=== PATIENT | female | born 1980 | race African-American/Black ===

== ENCOUNTER 2018-12-06 13:26 | Emergency (ER) | payer SELFPAY ==
--- NOTE | 2018-12-06 15:37 | ER Document Report ---
ED Medical Screen (RME) - General Chief Complaint: Abdominal Pain Stated Complaint: VOMITING Time Seen by Provider: 12/06/18 15:35 Mode of Arrival: Ambulatory Information source: Patient Notes: 38-year-old female presents to ED for complaint of nausea vomiting cramping for over a week dizziness and abdominal pain. She states she has not had any stool in a while she does not know how long. She states she has a history of bipolar and schizophrenia. She states she does not smoke but she drinks maybe once a week or once a month and smokes pot. She states she lives with her man. Patient is alert oriented respirations regular and unlabored does gag in the emergency room but no real vomiting noted. Abdomen is soft to palpation. Bowel sounds are present. I have greeted and performed a rapid initial assessment of this patient. A comprehensive ED assessment and evaluation of the patient, analysis of test results and completion of medical decision making process will be conducted by an additional ED providers. TRAVEL OUTSIDE OF THE [place] IN LAST 30 DAYS: No - Related Data Allergies/Adverse Reactions: No Known Allergies Allergy (Verified 12/06/18 13:28) Past Medical History - Social History Frequency of alcohol use: Social Drug Abuse: Marijuana Renal/ Medical History: Denies: Hx Peritoneal Dialysis Psychiatric Medical History: Reports: Hx Bipolar Disorder, Hx Schizophrenia Physical Exam - Vital signs Vitals: Temp Pulse Resp BP Pulse Ox 98.5 F 94 18 120/69 99 12/06/18 13:34 12/06/18 13:34 12/06/18 13:34 12/06/18 13:34 12/06/18 13:34 Course - Vital Signs Vital signs: Temp Pulse Resp BP Pulse Ox 98.5 F 94 18 120/69 99 12/06/18 13:34 12/06/18 13:34 12/06/18 13:34 12/06/18 13:34 12/06/18 13:34
[2018-12-06 17:13] LABS: ABSOLUTE LYMPHOCYTES (AUTO) 1.7 10^3/uL (0.5-4.7); ABSOLUTE MONOCYTES (AUTO) 0.5 10^3/uL (0.1-1.4); BASOPHILS % (AUTO) 0.7 % (0-2); EOSINOPHILS % (AUTO) 0.1 % (0-6); HEMATOCRIT 41.5 % (36.0-47.0); HEMOGLOBIN 13.9 g/dL (12.0-15.5); LYMPHOCYTES % (AUTO) 27.1 % (13-45); MEAN CORPUSCULAR HGB CONC 33.4 g/dL (32.0-36.0); MEAN CORPUSCULAR VOLUME 72 fl (80-97); MONOCYTES % (AUTO) 8.3 % (3-13); PLATELET COUNT 310 10^3/uL (150-450); RED BLOOD COUNT 5.78 10^6/uL (3.72-5.28); RED CELL DISTRIBUTION WIDTH 13.9 % (11.5-14.0); SEGMENTED NEUTROPHILS % (AUTO) 63.8 % (42-78); TOTAL CELLS COUNTED % (AUTO) 100 %; WHITE BLOOD COUNT 6.2 10^3/uL (4.0-10.5)
[2018-12-06 17:23] LABS: APPEARANCE,URINE SLIGHTLY-CLOUDY; BILIRUBIN,URINE NEGATIVE (NEGATIVE); COLOR,URINE AMBER; GLUCOSE, URINE NEGATIVE (NEGATIVE); KETONES,URINE 80 mg/dL (NEGATIVE); LEUKOCYTE ESTERASE,URINE NEGATIVE (NEGATIVE); NITRITE,URINE NEGATIVE (NEGATIVE); PROTEIN,URINE 100 mg/dL (NEGATIVE)
[2018-12-06 17:30] LABS: URINE AMPHETAMINES SCREEN NEGATIVE; URINE BARBITURATES SCREEN NEGATIVE; URINE BENZODIAZEPINES SCREEN NEGATIVE; URINE COCAINE SCREEN NEGATIVE; URINE MARIJUANA (THC) SCREEN UNCONFIRMED POSITIVE; URINE METHADONE SCREEN NEGATIVE; URINE PHENCYCLIDINE SCREEN NEGATIVE
[2018-12-06 18:15] LABS: ALANINE AMINOTRANSFERASE 32 U/L (9-52); ALBUMIN 4.8 g/dL (3.5-5.0); ALKALINE PHOSPHATASE 50 U/L (38-126); ANION GAP 17 (5-19); ASPARTATE AMINO TRANSFERASE 22 U/L (14-36); BILIRUBIN,DIRECT 0.4 mg/dL (0.0-0.4); BILIRUBIN,TOTAL 0.8 mg/dL (0.2-1.3); BLOOD UREA NITROGEN 12 mg/dL (7-20); CALCIUM 10.8 mg/dL (8.4-10.2); CARBON DIOXIDE 24 mmol/L (22-30); CHLORIDE 98 mmol/L (98-107); GLUCOSE 100 mg/dL (75-110); LIPASE 207.8 U/L (23-300); POTASSIUM 3.4 mmol/L (3.6-5.0); SODIUM 138.7 mmol/L (137-145); TOTAL PROTEIN 8.5 g/dL (6.3-8.2)
[2018-12-06] MEDS ORDERED: METOCLOPRAMIDE HCL INJ/PF 10 MG/2 ML SDV IV ONE (21:52)
--- NOTE | 2018-12-06 21:54 | RADIOLOGY REPORT (SQ) ---
US PELVIS HISTORY: Early . Pelvic pain. COMPARISON: None. TECHNIQUE: Grayscale, color Doppler, and spectral Doppler ultrasound images of the pelvis were obtained. FINDINGS: There is an intrauterine gestational sac with a yolk sac and pole visualized. The crown-rump length measures 1.37 cm which corresponds to 7 weeks 5 days of . There is a heterogeneous area left of the gestational sac measuring 2.1 cm this may represent a small subchorionic hemorrhage. There is also a 2.5 x 2.6 x 2.8 cm fibroid. The heart rate is 175 bpm. The left ovary is not visualized. The right ovary measures 2.4 x 2.5 x 2.8 cm and contains normal color Doppler blood flow. IMPRESSION: 1. Single live IUP with estimated gestational age 7 weeks 5 days. 2. Small 2.1 cm subchorionic hemorrhage; attention on follow-up imaging is suggested. 3. 2.8 cm uterine fibroid. 4. Unremarkable right ovary. Left ovary not well visualized.
[2018-12-06] MEDS: NORMAL SALINE 1000 ML 1,000 ML IV PRN ×2 (22:08→23:04)
[2018-12-06] MEDS ORDERED: ACETAMINOPHEN 325 MG TABLET PO ONE (23:26)
[2018-12-07 00:19] VITALS: BP 122/64
--- NOTE | 2018-12-07 03:05 | ER Document Report ---
Entered by MATTHEW PAZ SCRIBE 12/06/182002 Acting as scribe for:WHITNEY MAYEN DO ED GI/ - General Chief Complaint: Abdominal Pain Stated Complaint: VOMITING Time Seen by Provider: 12/06/18 15:35 Primary Care Provider: [facility] [Provider Group] - Follow up in 3-5 days Mode of Arrival: Ambulatory Information source: Patient Notes: 38-year-old female who presents to the emergency department today with complai nts of abdominal pain and vomiting. Patient states she is sexually active and does not remember when her last menstrual period was. Patient states he has not taken a test. Patient states her abdomen is painful across her entire abdomen. TRAVEL OUTSIDE OF THE [place] IN LAST 30 DAYS: No - Related Data Allergies/Adverse Reactions: No Known Allergies Allergy (Verified 12/06/18 13:28) Past Medical History - General Information source: Patient - Social History Smoking Status: Never Smoker Cigarette use (# per day): No Frequency of alcohol use: Social Drug Abuse: Marijuana Lives with: Family Family History: Reviewed & Not Pertinent Patient has suicidal ideation: No Patient has homicidal ideation: No Psychiatric Medical History: Reports: Hx Bipolar Disorder, Hx Schizophrenia Surgical Hx: Negative Review of Systems - Review of Systems Constitutional: No symptoms reported EENT: No symptoms reported Cardiovascular: No symptoms reported Respiratory: No symptoms reported Gastrointestinal: See HPI, Abdominal pain, Vomiting Genitourinary: No symptoms reported Female Genitourinary: No symptoms reported Musculoskeletal: No symptoms reported Skin: No symptoms reported Hematologic/Lymphatic: No symptoms reported Neurological/Psychological: No symptoms reported -: Yes All other systems reviewed and negative Physical Exam - Vital signs Vitals: Temp Pulse Resp BP Pulse Ox 98.5 F 94 18 120/69 99 12/06/18 13:34 12/06/18 13:34 12/06/18 13:34 12/06/18 13:34 12/06/18 13:34 Interpretation: Normal - General General appearance: Appears well, Alert - HEENT Head: Normocephalic, Atraumatic Eyes: Normal Pupils: PERRL Mucous membranes: Dry - Respiratory Respiratory status: No respiratory distress Chest status: Nontender Breath sounds: Normal Chest palpation: Normal - Cardiovascular Rhythm: Regular, Tachycardia Murmur: No - Abdominal Inspection: Normal Distension: No distension Bowel sounds: Normal Tenderness: Tender - Mild suprapubic TTP Organomegaly: No organomegaly - Back Back: Normal, Nontender - Extremities General upper extremity: Normal inspection, Nontender, Normal color, Normal ROM, Normal temperature General lower extremity: Normal inspection, Nontender, Normal color, Normal ROM, Normal temperature, Normal weight bearing. No: Ronal's sign - Neurological Neuro grossly intact: Yes Cognition: Normal Orientation: AAOx4 King Coma Scale Eye Opening: Spontaneous Peck Coma Scale Verbal: Oriented King Coma Scale Motor: Obeys Commands King Coma Scale Total: 15 Speech: Normal Motor strength normal: LUE, RUE, LLE, RLE Sensory: Normal - Psychological Associated symptoms: Normal affect, Normal mood - Skin Skin Temperature: Warm Skin Moisture: Dry Skin Color: Normal Course - Re-evaluation Re-evalutation: Patient is a 38-year-old female who comes in with nausea and vomiting. Patient did not know that she was . She is 7 weeks and 5 days. Symptoms resolved after nausea medication and fluids. No further cramping. Denies STD concern. No bleeding. Patient was given information [facility] with [facility] as well as a copy of her ultrasound. She is instructed to take a vitamin and to not take any wetv-itr-twkwfhh medications without first asking the pharmacist as she seems to have a little bit of difficulty with understanding which medications are safe in . Understands and agrees with plan. Stable for discharge. - Vital Signs Vital signs: Temp Pulse Resp BP Pulse Ox 98.0 F 74 18 122/64 100 12/07/18 00:13 12/07/18 00:13 12/07/18 00:13 12/07/18 00:13 12/07/18 00:13 - Laboratory Result Diagrams: 12/06/18 16:53 12/06/18 17:44 Laboratory results interpreted by me: 12/06/18 12/06/18 12/06/18 16:53 16:53 16:53 RBC 5.78 H MCV 72 L MCH 24.0 L Potassium Calcium Total Protein Serum HCG, Qual POSITIVE H Beta HCG, Quant Urine Protein 100 H Urine Ketones 80 H Urine Urobilinogen 4.0 H 12/06/18 12/06/18 16:53 17:44 RBC MCV MCH Potassium 3.4 L Calcium 10.8 H Total Protein 8.5 H Serum HCG, Qual Beta HCG, Quant 837812.00 H Urine Protein Urine Ketones Urine Urobilinogen - Diagnostic Test Radiology reviewed: Reports reviewed Discharge - Discharge Clinical Impression: Vomiting affecting , antepartum Qualifiers: Weeks of gestation: less than 8 weeks Qualified Code(s): Z3A.01 - Less than 8 weeks gestation of Condition: Stable Disposition: HOME, SELF-CARE Instructions: Hyperemesis Gravidarum ([facility]), ([facility]) Additional Instructions: DO NOT TAKE IBUPROFEN WHEN YOU ARE . This includes Motrin and Advil. Please ask the pharmacist before taking any of the euxm-ynv-tslyuix medications when you are . Please start taking a vitamin. Prescriptions: Ondansetron [Zofran Odt 4 mg Tablet] 1 tab PO Q6HP PRN #15 tab.rapdis PRN Reason: For Nausea/Vomiting Metoclopramide HCl [Reglan 10 mg Tablet] 1 tab PO ASDIR PRN #25 tablet PRN Reason: Pnv No.95/Ferrous Fum/Folic AC [ Caplet] 1 each PO DAILY #90 tablet Referrals: [facility] [Provider Group] - Follow up in 3-5 days Scribe Attestation: 12/07/18 03:05 I personally performed the services described in the documentation, reviewed and edited the documentation which was dictated to the scribe in my presence, and it accurately records my words and actions. Scribe Documentation - Scribe Written by Santos:: Santos Gerard, [id number] acting as scribe for :: Mark I personally performed the services described in the documentation, reviewed and edited the documentation which was dictated to the scribe in my presence, and it accurately records my words and actions.
== END 2018-12-07 00:19 | disposition home or self-care (01) ==
LOC: ER 13:26
DX: O21.9 Vomiting of pregnancy, unspecified (principal); R00.0 Tachycardia, unspecified; R10.9 Unspecified abdominal pain; Z3A.08 8 weeks gestation of pregnancy
CPT/HCPCS: 99284; 96360; 96361; 96374; 36415; 84702; 83690; 84703; 85025; 80053; 81001; 80307; 76817; J2765; J7030

== ENCOUNTER 2019-06-24 16:24 | Outpatient (CLI) | payer MEDICAID ==
[2019-06-24 17:05] LABS: APPEARANCE,URINE CLOUDY; BILIRUBIN,URINE NEGATIVE (NEGATIVE); COLOR,URINE AMBER; GLUCOSE, URINE NEGATIVE (NEGATIVE); KETONES,URINE TRACE mg/dL (NEGATIVE); LEUKOCYTE ESTERASE,URINE SMALL (NEGATIVE); NITRITE,URINE NEGATIVE (NEGATIVE); PROTEIN,URINE 100 mg/dL (NEGATIVE); URINE SPECIFIC GRAVITY 1.028
[2019-06-24 17:22] LABS: URINE AMPHETAMINES SCREEN NEGATIVE; URINE BARBITURATES SCREEN NEGATIVE; URINE BENZODIAZEPINES SCREEN NEGATIVE; URINE COCAINE SCREEN NEGATIVE; URINE MARIJUANA (THC) SCREEN NEGATIVE; URINE METHADONE SCREEN NEGATIVE; URINE PHENCYCLIDINE SCREEN NEGATIVE
[2019-06-24 17:25] LABS: ABSOLUTE LYMPHOCYTES (AUTO) 0.9 10^3/uL (0.5-4.7); ABSOLUTE MONOCYTES (AUTO) 0.6 10^3/uL (0.1-1.4); ABSOLUTE NEUT (AUTO) 5.9 10^3/uL (1.7-8.2); BASOPHILS % (AUTO) 0.3 % (0-2); EOSINOPHILS % (AUTO) 0.3 % (0-6); HEMATOCRIT 31.4 % (36.0-47.0); LYMPHOCYTES % (AUTO) 12.5 % (13-45); MEAN CORPUSCULAR HEMOGLOBIN 23.5 pg (27.0-33.4); MEAN CORPUSCULAR VOLUME 73 fl (80-97); MONOCYTES % (AUTO) 7.6 % (3-13); PLATELET COUNT 264 10^3/uL (150-450); RED BLOOD COUNT 4.27 10^6/uL (3.72-5.28); RED CELL DISTRIBUTION WIDTH 14.8 % (11.5-14.0); SEGMENTED NEUTROPHILS % (AUTO) 79.3 % (42-78); TOTAL CELLS COUNTED % (AUTO) 100 %; WHITE BLOOD COUNT 7.4 10^3/uL (4.0-10.5)
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
[2019-06-24] MEDS ORDERED: ACETAMINOPHEN 325 MG TABLET PO ONE (19:23)
[2019-06-24] MEDS ORDERED: ACETAMINOPHEN 325 MG TABLET ONE (19:52)
--- NOTE | 2019-06-24 20:58 | Non Stress Test Report ---
Non Stress Test Datetime Report Generated by CPN: 06/24/2019 20:58 DEMOGRAPHIC EGA NST: 36.2 INDICATION Indication for Study: Ordered by Provider; Other Indication for Study (NST) Other: Labor check MONITORING Monitor Explained: Monitor Explained; Test Explained; Patient Verbalized Understanding Time on Monitor: 06/24/2019 16:44 Time off Monitor: 06/24/2019 17:15 NST Duration: 31 NST INTERVENTIONS NST Interventions: None BABY A: [id number] BABY A Movement : Present Contraction Frequency : None FHR Baseline : 140 Accelerations : 15X15 Decelerations : None Variability : Moderate 6-25bpm NST Review: Meets Criteria for Reactive NST NST Review and Verified By : Yennifer Jeffery RN NST Results: Reactive NST REPORT Report Trigger: Send Report
[2019-06-24 22:56] LABS: RHOGAM DOSE INDICATED 0 VIAL(S)
== END 2019-06-24 20:02 | disposition home or self-care (01) ==
LOC: LC 16:24
PROVIDERS: ATTEND Obstetrics & Gynecology
PROC: 4A1HXCZ Monitoring of Products of Conception, Cardiac Rate, External Approach (ICD-10-PCS; principal; 2019-06-24)
DX: O9A.213 Injury, poisoning and certain other consequences of external causes complicating pregnancy, third trimester (principal); S39.91XA Unspecified injury of abdomen, initial encounter; W19.XXXA Unspecified fall, initial encounter; O09.523 Supervision of elderly multigravida, third trimester; Z3A.36 36 weeks gestation of pregnancy
CPT/HCPCS: 59025; 86900; 86901; 36415; 85025; 81005; 85460; 80307; 76815; J3490

== ENCOUNTER 2019-07-08 11:15 | Inpatient (IN) | payer MEDICAID ==
[2019-07-08] MEDS ORDERED: MISOPROSTOL 0.2 MG TABLET ONE (11:20)
[2019-07-08] MEDS ORDERED: LIDOCAINE 1% INJ-PF (10 MG/ML) 30 ML SDV ONE (11:20)
[2019-07-08] MEDS ORDERED: OXYTOCIN 10 UNIT/ML VIAL ONE (11:20)
[2019-07-08] MEDS ORDERED: OXYTOCIN/NORMAL SALINE 20 UNIT/1,000 ML RTUINJ ONE (11:20)
[2019-07-08] MEDS ORDERED: IBUPROFEN 800 MG TABLET ONE (11:31)
[2019-07-08 12:02] LABS: ABSOLUTE LYMPHOCYTES (AUTO) 0.7 10^3/uL (0.5-4.7); ABSOLUTE MONOCYTES (AUTO) 0.5 10^3/uL (0.1-1.4); ABSOLUTE NEUT (AUTO) 10.1 10^3/uL (1.7-8.2); BASOPHILS % (AUTO) 0.3 % (0-2); EOSINOPHILS % (AUTO) 0.1 % (0-6); HEMATOCRIT 36.5 % (36.0-47.0); HEMOGLOBIN 11.5 g/dL (12.0-15.5); LYMPHOCYTES % (AUTO) 5.8 % (13-45); MEAN CORPUSCULAR HEMOGLOBIN 23.4 pg (27.0-33.4); MEAN CORPUSCULAR HGB CONC 31.6 g/dL (32.0-36.0); MEAN CORPUSCULAR VOLUME 74 fl (80-97); MONOCYTES % (AUTO) 4.1 % (3-13); PLATELET COUNT 234 10^3/uL (150-450); RED BLOOD COUNT 4.94 10^6/uL (3.72-5.28); RED CELL DISTRIBUTION WIDTH 14.6 % (11.5-14.0); SEGMENTED NEUTROPHILS % (AUTO) 89.7 % (42-78); TOTAL CELLS COUNTED % (AUTO) 100 %; WHITE BLOOD COUNT 11.2 10^3/uL (4.0-10.5)
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
[2019-07-08] MEDS ORDERED: MEASLES,MUMPS&RUBELLA VACC/PF 0.5 ML VIAL SUBCUT PRN (13:47)
[2019-07-08] MEDS ORDERED: NA PHOS,M-B/NA PHOS,DI-BA (ADULT) 133 ML ENEMA PR PRN (13:47)
[2019-07-08] MEDS ORDERED: PSEUDOEPHEDRINE HCL 30 MG TABLET PO PRN (13:47)
[2019-07-08] MEDS ORDERED: PROMETHAZINE HCL 25 MG TABLET PO PRN (13:47)
[2019-07-08] MEDS ORDERED: DIBUCAINE 1% OINTMENT 56 GM TP PRN (13:47)
[2019-07-08] MEDS ORDERED: BENZOCAINE/MENTHOL AEROSOL SPRAY 56 ML TOP PRN (13:47)
[2019-07-08] MEDS ORDERED: GLYCERIN/WITCH HAZEL LEAF 1 EACH MED..WIPE TP PRN (13:47)
[2019-07-08] MEDS ORDERED: DIPH/PERTUSS(ACELL)/TETANUS VAC/PF 0.5 ML SYR (>=10YO) IM PRN (13:47)
[2019-07-08] MEDS ORDERED: ACETAMINOPHEN 650 MG SUPP.RECT PR PRN (13:47)
[2019-07-08] MEDS ORDERED: OXYTOCIN/NORMAL SALINE 20 UNIT/1,000 ML RTUINJ IV PRN (13:47)
[2019-07-08] MEDS ORDERED: PROMETHAZINE HCL INJ 25 MG/1 ML VIAL IV PRN (13:47)
[2019-07-08] MEDS ORDERED: PROMETHAZINE HCL 25 MG SUPP.RECT PR PRN (13:47)
[2019-07-08] MEDS ORDERED: MAGNESIUM HYDROXIDE SUSP 30 ML UDCUP PO PRN (13:47)
[2019-07-08] MEDS ORDERED: DIPHENHYDRAMINE HCL 25 MG CAPSULE PO PRN (13:47)
[2019-07-08 16:35] LABS: APPEARANCE,URINE SLIGHTLY-CLOUDY; BILIRUBIN,URINE NEGATIVE (NEGATIVE); COLOR,URINE YELLOW; GLUCOSE, URINE NEGATIVE (NEGATIVE); KETONES,URINE NEGATIVE (NEGATIVE); LEUKOCYTE ESTERASE,URINE MODERATE (NEGATIVE); NITRITE,URINE NEGATIVE (NEGATIVE); PROTEIN,URINE 100 mg/dL (NEGATIVE); URINE SPECIFIC GRAVITY 1.012; UROBILINOGEN,URINE NEGATIVE mg/dL (<2.0)
[2019-07-08] MEDS: FERROUS SULFATE 325 MG TABLET PO SCH (17:13)
[2019-07-08] MEDS: DOCUSATE SODIUM 100 MG CAPSULE PO SCH (17:13)
[2019-07-08 17:19] LABS: URINE AMPHETAMINES SCREEN NEGATIVE; URINE BARBITURATES SCREEN NEGATIVE; URINE BENZODIAZEPINES SCREEN NEGATIVE; URINE COCAINE SCREEN NEGATIVE; URINE MARIJUANA (THC) SCREEN NEGATIVE; URINE METHADONE SCREEN NEGATIVE; URINE PHENCYCLIDINE SCREEN NEGATIVE
[2019-07-08] MEDS: IBUPROFEN 800 MG TABLET PO SCH ×2 (18:07→22:13)
[2019-07-08] MEDS: ACETAMINOPHEN WITH CODEINE #3 TABLET PO PRN (18:15)
[2019-07-08] MEDS: FAMOTIDINE 20 MG TABLET PO SCH (22:13)
[2019-07-09] MEDS: ACETAMINOPHEN WITH CODEINE #3 TABLET PO PRN (04:29)
[2019-07-09 06:44] LABS: MEAN CORPUSCULAR HEMOGLOBIN 23.7 pg (27.0-33.4); MEAN CORPUSCULAR HGB CONC 32.3 g/dL (32.0-36.0); MEAN CORPUSCULAR VOLUME 74 fl (80-97); PLATELET COUNT 205 10^3/uL (150-450); RED BLOOD COUNT 4.21 10^6/uL (3.72-5.28); RED CELL DISTRIBUTION WIDTH 14.7 % (11.5-14.0); WHITE BLOOD COUNT 7.6 10^3/uL (4.0-10.5)
[2019-07-09] MEDS: PRENATAL VITAMIN W DHA CAPSULE PO SCH (09:23)
[2019-07-09] MEDS: DOCUSATE SODIUM 100 MG CAPSULE PO SCH ×2 (09:23→17:57)
[2019-07-09] MEDS: FAMOTIDINE 20 MG TABLET PO SCH ×2 (09:23→22:00)
[2019-07-09] MEDS: FERROUS SULFATE 325 MG TABLET PO SCH ×2 (09:24→17:57)
[2019-07-09] MEDS: SENNOSIDES/DOCUSATE 8.6-50 MG 1 EACH TABLET PO SCH (09:24)
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
[2019-07-09] MEDS: IBUPROFEN 800 MG TABLET PO SCH ×3 (10:26→22:00)
--- NOTE | 2019-07-09 16:23 | PSYCHOLOGICAL NOTE ---
Psych Note - Psych Note Date seen by psych provider: 07/09/19 Time seen by psych provider: 11:15 - 1200 Psych Note: Reason For Consult: Consent Permissions:Refused Patient is alert and orientated to person, place, time and circumstance. Mood is euthymic with congruent affect. Patient denies suicidal and homicidal ideation. Delusions are absent and behaviors congruent with an intact reality based presentation I organized and linear thought process. Eye contact is poor; Patient looks in the direction of the clinician but does not make eye contact. Conversational speech is labile with patient providing information in story form as if reliving experience and talking directly to the clinician (ie. when telling the story about her and her fiancee, patient looks directly at clinician and yells "You don't talk to me like that...you will respect me." then looks away and states in a normal tone "he disrespects me....I try to be a good women." ). Intellectual abilities appear to be low to below average range. Attention and concentration are fair. Insight, judgment, impulse control are poor. Diagnosis: Schizoaffective disorder; bipolar type per history provided by patient Posttraumatic stress disorder per history provided by patient Medication recommendations per [facility]'s contracted psychiatrist Dr. Keith HERNANDEZ are as follows Zyprexa 2.5 mg twice daily Impression\\plan: Clinician notes patient is unable to breast-feed when on medication recommendations. At this time patient is not demonstrating that she would be a safe discharge with her child. Patient does not meet IVC criteria per [place] GS 120 2C i.e. patient denies suicidal and homicidal ideation and she is not indicating behaviors of responding to internal stimuli. Concern is the patient cognitively is ill-equipped at this time to care for her child. Discharge planning has contacted CPS with concerns of the patient being able to care appropriately for the child. Patient has not requested to see the baby since yesterday. Clinician was notified by staff that initially the patient was holding the child and told staff she was nursing however child was inches away from being able to latch on. Patient reportedly was adamant she was actively nursing the child. At this time the baby is being bottle fed by staff. Dr. Masters was consulted to care management of this patient; attending physicians in agreement with recommendations and disposition.
[2019-07-10] MEDS: IBUPROFEN 800 MG TABLET PO SCH ×2 (06:01→15:25)
[2019-07-10 09:13] VITALS: BP 105/60
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
[2019-07-10] MEDS: SENNOSIDES/DOCUSATE 8.6-50 MG 1 EACH TABLET PO SCH (11:41)
[2019-07-10] MEDS: DOCUSATE SODIUM 100 MG CAPSULE PO SCH ×2 (11:41→17:28)
[2019-07-10] MEDS: PRENATAL VITAMIN W DHA CAPSULE PO SCH (11:41)
[2019-07-10] MEDS: FERROUS SULFATE 325 MG TABLET PO SCH ×2 (11:41→17:28)
[2019-07-10] MEDS: FAMOTIDINE 20 MG TABLET PO SCH (11:42)
--- NOTE | 2019-07-14 13:08 | Delivery Summary ---
Del Sum A-C Datetime Report Generated by CPN: 07/14/2019 13:08 DELIVERY PERSONNEL DELIVERY PERSONNEL: [id number] Delivery Doctor:: Josephine De Jesus MD MATERNAL INFORMATION Medications After Delivery: Pitocin Bolus-Please Comment Meds After Delivery Comment: Pitocin 20 units in 1000ML Started at 1120 Estimated Blood Loss (ml): 100 Delivery QBL Comment: 100 Maternal Complications: Precipitous Labor (<3hrs) Provider Comments: Patient arrived by EMS with baby in arms. She had delivered at home at 1002 in her toilet per EMS. Cord clamped and cut by EMS. Placenta not delivered upon arrival. Pt evaluated in ER and transported to labor and delivery room 1. Meconium stained per EMS. baby evaluated in ER by Nursery personnel and transported to nursery. Placenta delivered intact spontaeously. Perineal abrasions no repair needed. FF at U. Placenta sent to pathology. Mother stable upon provider leaving the room. Cytotec 1000mcg placed per rectum. LABOR SUMMARY EDC: 07/20/2019 00:00 No. Babies in Womb: 1 Attempted: No Labor Anesthesia: None LABOR INFORMATION Reason for Induction: Not Applicable Oxytocin: N/A Group B Beta Strep: negative Steroids Given: None Reason Steroids Not Administered: Not Applicable VAGINAL DELIVERY Episiotomy: None Laceration #1: None Laceration Extension #1: N/A Other Laceration: vaginal skid warren, no repair Laceration Repair: No Sponge Count Correct: N/A Sharps Count Correct: N/A CSECTION DELIVERY Primary Indication: N/A BABY A INFORMATION Method of Delivery: Vaginal : N/A PLACENTA INFORMATION BABY A Placenta Delivery Time : 07/08/2019 11:27 Placenta Method of Delivery: Spontaneous Placenta Status: Delivered INFORMATION BABY A Gestational Age at Delivery: 38.2 Gestational Status: Early Term- 37- 38.6 Weeks CORD INFORMATION BABY A No. Cord Vessels: 3 Cord Blood Taken: Yes-For Storage (Mom's Blood type +) BABY B INFORMATION : N/A SIGNATURES Signature: with User ID: [email or web address]
== END 2019-07-10 19:00 | disposition home or self-care (01) | DRG 776 ==
LOC: LR 11:15 → 2S 13:45
PROVIDERS: ADMIT Student in an Organized Health Care Education/Training Program; ATTEND Student in an Organized Health Care Education/Training Program
PROC: 10E0XZZ Delivery of Products of Conception, External Approach (ICD-10-PCS; principal; 2019-07-08)
DX: O73.0 Retained placenta without hemorrhage (principal); Z3A.38 38 weeks gestation of pregnancy
CPT/HCPCS: 36415; 80307; 81005; 85025; 85027; 86592; 86850; 86900; 86901; 88307; J2590; J3490